=== PATIENT | female | born 1990 | race American Indian/Alaskan Native ===

== ENCOUNTER 2016-07-17 09:28 | Outpatient (CLI) | payer MEDICAID ==
--- NOTE | 2016-07-17 15:01 | Ultrasound Report ---
Bilateral digital diagnostic mammogram with CAD and bilateral whole breast ultrasound including all 4 quadrants and subareolar region of each breast. History: This is a baseline study in a patient who complains of bilateral mastodynia, diffuse. Findings: The breasts are relatively symmetrical and demonstrate intermediate density. No mass lesions or suspicious calcifications are seen. There is no architectural distortion. Bilateral whole breast ultrasound demonstrates no cystic or solid masses. Impression: No suspicious imaging findings. BI-RADS code: 1. Recommendation: Routine screening schedule, ACS guidelines.
== END 2016-07-17 09:29 | disposition home or self-care (01) ==
LOC: US 09:28
PROVIDERS: ATTEND Internal Medicine
DX: N64.4 Mastodynia (principal)
CPT/HCPCS: 76641; G0204; 77066